=== PATIENT | male | born 1950 | race Caucasian/White ===

== ENCOUNTER 2020-04-23 05:23 | Day surgery (SDC) | payer MEDICARE ==
[~2020-04-23] VITALS: Ht 177.8 cm; Wt 112.7 kg
[~2020-04-23 05:23] MED LIST: ALBU90OI INH; ALLEGRA ALLERG180 MG PO; ALLO100 PO; ATOR20 PO; Aspir 8181 MG PO; NEBI10 PO; Prinivil10 MG PO; TURMERIC 500 M1 EACH PO
== END 2020-04-23 09:08 | disposition home or self-care (01) ==
LOC: ORSCSDS 05:23
PROVIDERS: Student in an Organized Health Care Education/Training Program
PROC: 0DBK8ZX Excision of Ascending Colon, Via Natural or Artificial Opening Endoscopic, Diagnostic (ICD-10-PCS; principal; 2020-04-23 08:00)
PROC: 0DBP8ZX Excision of Rectum, Via Natural or Artificial Opening Endoscopic, Diagnostic (ICD-10-PCS; principal; 2020-04-23 08:00)
DX: Z12.11 Encounter for screening for malignant neoplasm of colon (principal); Z86.010 Personal history of colon polyps; Z80.0 Family history of malignant neoplasm of digestive organs; D12.2 Benign neoplasm of ascending colon; K62.1 Rectal polyp; K64.8 Other hemorrhoids; I10 Essential (primary) hypertension; Z95.0 Presence of cardiac pacemaker; I25.10 Atherosclerotic heart disease of native coronary artery without angina pectoris; J45.909 Unspecified asthma, uncomplicated; Z79.82 Long term (current) use of aspirin; Z79.899 Other long term (current) drug therapy
CPT/HCPCS: 88305; J0330; J0461; J2405; J2704; J7120

== ENCOUNTER 2023-11-08 14:26 | Day surgery (SDC) | payer MEDICARE ==
[~2023-11-08] VITALS: Ht 180.3 cm; Wt 106.4 kg
[2023-11-08] MEDS ORDERED: ELIQUIS5 M3 PO (14:42)
--- NOTE | 2023-11-08 14:46 | NUR ---
11/08/23 1446 Claire Felix AT 1436 PLEDGET AT 1431
[2023-11-08 15:58] VITALS: BP 132/67
--- NOTE | 2023-11-08 16:17 | NUR ---
11/08/23 1617 Claire Felix IV OUT, WNL
== END 2023-11-08 16:16 | disposition home or self-care (01) ==
LOC: ORSCSDS 14:26
PROVIDERS: Ophthalmology
PROC: 08RJ3JZ Replacement of Right Lens with Synthetic Substitute, Percutaneous Approach (ICD-10-PCS; principal; 2023-11-08 15:30)
DX: H25.11 Age-related nuclear cataract, right eye (principal); I10 Essential (primary) hypertension; E78.5 Hyperlipidemia, unspecified; J45.909 Unspecified asthma, uncomplicated; Z95.1 Presence of aortocoronary bypass graft; I25.2 Old myocardial infarction; I48.91 Unspecified atrial fibrillation; Z95.0 Presence of cardiac pacemaker; Z79.82 Long term (current) use of aspirin; Z79.899 Other long term (current) drug therapy
CPT/HCPCS: J2250; J3010; J3301; J7040; V2632

== ENCOUNTER 2025-05-27 06:50 | Day surgery (SDC) | payer MEDICARE ==
--- NOTE | 2025-05-26 10:06 | NUR ---
PT DIDN'T ANSWER PHONE CALL SO UNABLE TO EDUCATE ABOUT FIRE SAFETY POLICY.
[2025-05-27] VITALS (19 sets, daily range): BP systolic 117–173; BP diastolic 66–105
[~2025-05-27] VITALS: Ht 177.8 cm; Wt 106.8 kg
[~2025-05-27 06:50] MED LIST changes: +ELIQUIS5 M3 PO
--- NOTE | 2025-05-27 07:08 | NUR ---
05/27/25 0708 Rosa Stokes CONFIRMED AND REVIEWED H&P, MEDCICATIONS, ALLERGIES, MEDICAL HISTORY, RESPIRATORY HISTORY, VITAL SIGNS, 3-LEAD EKG, CONSENTS, AND PHYSICIAN ORDERS. PATIENT CONFIRMS NPO STATUS AND AGREES WITH SCHEDULED PROCEDURE. MONITOR INTACT WITH CONTINUOUS PULSE OXIMETRY, CAPNOGRAPHY, 3-LEAD EKG, INTERMITTENT BP. SUPPLEMENTAL O2 TO BE TITRATED THROUGHOUT PROCEDURE TO MAINTAIN O2 SATURATION ABOVE 90%. PATIENT DETERMINED TO BE ASA APPROPRIATE FOR PROPOFOL SEDATION PRIOR TO START OF PROCEDURE BY DR. KHAN.
--- NOTE | 2025-05-27 07:12 | NUR ---
Ambulatory in Day SurgeryPre-Op teaching done. Pt verbalizes understanding. History, Chart, Medications and Allergies reviewed before start of procedure.Patient confirms NPO status and agrees with scheduled surgery. Patient States Post-Procedure ride home has been arranged.
--- NOTE | 2025-05-27 08:37 | NUR ---
TO STEP POST COLONOSCOPY. NO SPECIMENS TAKEN. FOLLOW UP 5 YEARS. A/O X 3, DENIES PAIN, NAUSEA, SOB. MELODIE PO WELL. DC'D IV INTACT. DC'D VIA WC TO PRIVATE CAR WITH MANAGER PEOPLE.
== END 2025-05-27 08:40 | disposition home or self-care (01) ==
LOC: ORSCMMR 06:50 → ORD 07:30 → ORSCMMR 07:30
PROVIDERS: Internal Medicine Gastroenterology
PROC: 0DJD8ZZ Inspection of Lower Intestinal Tract, Via Natural or Artificial Opening Endoscopic (ICD-10-PCS; principal; 2025-05-27 07:30)
DX: Z12.11 Encounter for screening for malignant neoplasm of colon (principal); K62.5 Hemorrhage of anus and rectum; Z86.0101 Personal history of adenomatous and serrated colon polyps; E78.00 Pure hypercholesterolemia, unspecified; M1A.9XX1 Chronic gout, unspecified, with tophus (tophi); I25.10 Atherosclerotic heart disease of native coronary artery without angina pectoris; Z95.1 Presence of aortocoronary bypass graft; Z95.0 Presence of cardiac pacemaker; I48.91 Unspecified atrial fibrillation; Z79.01 Long term (current) use of anticoagulants; Z79.899 Other long term (current) drug therapy
CPT/HCPCS: J2704; J7120